=== PATIENT | female | born 1970 | race Caucasian/White ===

== ENCOUNTER 2018-01-31 08:11 | Inpatient (IN) | payer MEDICARE, MEDICAID ==
[~2018-01-31] VITALS: Ht 154.9 cm; Wt 76.5 kg
[~2018-01-31 08:11] MED LIST: QUET25TA PO
[2018-01-31] MEDS ORDERED: PANTOPRAZOLE SODIUM 40 MG/VIAL IV STA (08:34)
[2018-01-31] MEDS ORDERED: OCTREOTIDE ACETATE 50 MCG/ML 1ML IV STA (08:34)
[2018-01-31] MEDS ORDERED: SODIUM CHLORIDE 0.9% 1,000 ML IV ONE (08:34)
[2018-01-31] MEDS ORDERED: ONDANSETRON HCL 4MG/2ML VIAL IV STA (08:34)
[2018-01-31] MEDS ORDERED: PANTOPRAZOLE 80 MG in SODIUM CHLORIDE 0.9% 100 ML IV STA (08:34)
[2018-01-31] MEDS ORDERED: OCTREOTIDE 1,000 MCG in SODIUM CHLORIDE 0.9% 100 ML IV STA (08:34)
[2018-01-31 09:02] LABS: HEMATOCRIT. 29.4 % (36.0-48.0); HEMOGLOBIN. 9.9 g/dL (12.0-16.0); MEAN CORPUSCULAR HEMOGLOBIN 28.5 pg (28.0-32.0); MEAN CORPUSCULAR VOLUME 84.7 fL (81.0-99.0); MEAN PLATELET VOLUME 7.6 fl (7.4-10.4); PLATELET 188 x1000/uL (130-400); RED BLOOD CELL COUNT 3.48 mill/uL (4.2-5.4); RED CELL DISTRIBUTION WIDTH 18.3 % (11.6-14.6)
[2018-01-31 09:06] LABS: CHLORIDE 93 mEq/L (98-107)
[2018-01-31 09:07] LABS: INR 1.2; PROTHROMBIN TIME 12.9 sec (9.4-11.6)
[2018-01-31 09:14] LABS: HCG SCREEN INDETERMINATE
[2018-01-31 09:44] LABS: PLATELET ESTIMATE NORMAL
[2018-01-31] MEDS ORDERED: SODIUM CHLORIDE 0.9% 1000ML BAG (SEPSIS BOLUS) IV ONE (09:45)
[2018-01-31] MEDS ORDERED: SODIUM CHLORIDE 0.9% 1,250 ML IV SCH (10:00)
[2018-01-31] MEDS ORDERED: GUAIFENESIN 200MG/10ML SUGAR FREE UDC PO PRN (11:30)
[2018-01-31] MEDS ORDERED: ONDANSETRON HCL 4MG/2ML VIAL IV PRN (11:30)
[2018-01-31] MEDS ORDERED: CLONIDINE 0.1MG TABLET PO PRN (11:30)
[2018-01-31] MEDS ORDERED: ACETAMINOPHEN 650MG SUPP PR PRN (11:30)
[2018-01-31] MEDS ORDERED: ACETAMINOPHEN 650MG/20.3ML UDC GT PRN (11:30)
[2018-01-31] MEDS ORDERED: ACETAMINOPHEN 325MG TABLET PO PRN (11:30)
[2018-01-31] MEDS ORDERED: DIPHENHYDRAMINE 50MG/ML VIAL IV PRN (11:30)
[2018-01-31] MEDS ORDERED: MAGNESIUM/ALUMINUM HYDROXIDE/SIMETHICONE 30ML UDC PO PRN (11:30)
[2018-01-31] MEDS ORDERED: DOCUSATE SODIUM 100MG CAPSULE PO PRN (11:30)
[2018-01-31 11:44] LABS: CLARITY URINE CLOUDY (CLEAR); COLOR URINE YELLOW (YELLOW); KETONES URINE 4+ (NEGATIVE); LEUKOCYTE ESTERASE URINE 1+ (NEGATIVE); NITRITE URINE NEGATIVE (NEGATIVE); OCCULT BLOOD URINE 1+ (NEGATIVE); PROTEIN URINE TRACE (NEGATIVE); SPECIFIC GRAVITY URINE 1.025 (1.005-1.030)
[2018-01-31 12:00] VITALS: BP 141/78
[2018-01-31] MEDS: IPRATROPIUM/ALBUTEROL 0.5-3(2.5)MG/3ML NEB INH SCH ×2 (13:47→21:59)
[2018-01-31 14:00] VITALS: BP 131/58
[2018-01-31] MEDS ORDERED: FENTANYL CITRATE/PF 50MCG/ML 2ML VIAL ONE (14:46)
[2018-01-31] MEDS ORDERED: MIDAZOLAM HCL 5 MG/5 ML VIAL ONE (14:46)
[2018-01-31] MEDS ORDERED: MIDAZOLAM HCL 5 MG/5 ML VIAL IV PRN (14:52)
[2018-01-31] MEDS ORDERED: FENTANYL CITRATE/PF 50MCG/ML 2ML VIAL IV PRN (14:53)
[2018-01-31] MEDS ORDERED: SODIUM CHLORIDE 0.9% 10ML VIAL ONE (14:54)
[2018-01-31] MEDS ORDERED: SIMETHICONE 40 MG/0.6 ML 30ML ONE (14:54)
[2018-01-31 16:00] VITALS: BP 133/69
[2018-01-31] MEDS: FOLIC ACID 1 MG, THIAMINE HCL 100 MG, MVI, ADULT NO.1 10 ML in DEXTROSE 5% WATER 1,000 ML IV SCH ×4 (17:42)
[2018-01-31] MEDS: OCTREOTIDE 1,000 MCG in SODIUM CHLORIDE 0.9% 98 ML IV SCH (17:42)
[2018-01-31] MEDS: PROPRANOLOL HCL 10MG TABLET PO SCH ×2 (17:42→21:01)
[2018-01-31 18:00] VITALS: BP 122/87
[2018-01-31 20:00] VITALS: BP 150/76
[2018-01-31] MEDS: PANTOPRAZOLE SODIUM 40 MG/VIAL IV SCH (21:01)
[2018-01-31 22:00] VITALS: BP 138/74
[2018-01-31 23:07] LABS: BASOPHILS % 0.1 % (0.0-2.0); EOSINOPHILS % 0.3 % (0.0-5.0); HEMATOCRIT. 23.9 % (36.0-48.0); HEMOGLOBIN. 8.2 g/dL (12.0-16.0); LYMPHOCYTES % 14.1 % (20.0-50.0); MEAN CORPUSCULAR HEMOGLOBIN 28.9 pg (28.0-32.0); MEAN CORPUSCULAR VOLUME 84.3 fL (81.0-99.0); MEAN PLATELET VOLUME 7.7 fl (7.4-10.4); MONOCYTES % 7.1 % (2.0-8.0); NEUTROPHILS % 78.4 % (40.0-76.0); PLATELET 121 x1000/uL (130-400); RED BLOOD CELL COUNT 2.83 mill/uL (4.2-5.4); RED CELL DISTRIBUTION WIDTH 18.1 % (11.6-14.6)
[2018-01-31 23:22] LABS: CREATINE KINASE 465 IU/L (26-192)
[2018-01-31 23:23] LABS: CREATINE KINASE MB FRACTION 5.3 ng/mL (0.5-3.6)
[2018-02-01] VITALS (12 sets, daily range): BP systolic 107–164; BP diastolic 52–83
[2018-02-01] MEDS: IPRATROPIUM/ALBUTEROL 0.5-3(2.5)MG/3ML NEB INH SCH ×4 (02:32→20:57)
[2018-02-01] MEDS: PROPRANOLOL HCL 10MG TABLET PO SCH ×3 (05:48→21:21)
[2018-02-01] MEDS ORDERED: DIATR MEGLU/DIATRIZOATE SOLN 30ML PO SCH (07:15)
[2018-02-01 07:24] LABS: AMMONIA 132 uMol/L (<32)
[2018-02-01 07:30] LABS: BASOPHILS % 0.4 % (0.0-2.0); EOSINOPHILS % 0.3 % (0.0-5.0); HEMATOCRIT. 24.9 % (36.0-48.0); HEMOGLOBIN. 8.5 g/dL (12.0-16.0); LYMPHOCYTES % 13.4 % (20.0-50.0); MEAN CORPUSCULAR HEMOGLOBIN 28.8 pg (28.0-32.0); MEAN CORPUSCULAR VOLUME 84.5 fL (81.0-99.0); MEAN PLATELET VOLUME 8.1 fl (7.4-10.4); MONOCYTES % 5.3 % (2.0-8.0); NEUTROPHILS % 80.6 % (40.0-76.0); PLATELET 118 x1000/uL (130-400); RED BLOOD CELL COUNT 2.95 mill/uL (4.2-5.4); RED CELL DISTRIBUTION WIDTH 17.9 % (11.6-14.6)
[2018-02-01 07:39] LABS: CHLORIDE 98 mEq/L (98-107)
[2018-02-01 07:48] LABS: LDL CHOLESTEROL 113 mg/dL (5-100)
[2018-02-01 07:50] LABS: HDL CHOLESTEROL 68 mg/dL (40-59)
[2018-02-01 07:56] LABS: T4 FREE 0.76 ng/dL (0.76-1.46)
[2018-02-01 08:06] LABS: PHOSPHORUS 0.6 mg/dL (2.5-4.9)
[2018-02-01] MEDS: OCTREOTIDE 1,000 MCG in SODIUM CHLORIDE 0.9% 98 ML IV SCH (09:16)
[2018-02-01] MEDS: PANTOPRAZOLE SODIUM 40 MG/VIAL IV SCH ×2 (09:16→21:21)
[2018-02-01] MEDS: FOLIC ACID 1 MG, THIAMINE HCL 100 MG, MVI, ADULT NO.1 10 ML in DEXTROSE 5% WATER 1,000 ML IV SCH ×4 (09:16)
[2018-02-01 10:18] LABS: BASOPHILS % 0.5 % (0.0-2.0); EOSINOPHILS % 0.4 % (0.0-5.0); HEMATOCRIT. 25.5 % (36.0-48.0); HEMOGLOBIN. 8.8 g/dL (12.0-16.0); LYMPHOCYTES % 12.8 % (20.0-50.0); MEAN CORPUSCULAR VOLUME 84.3 fL (81.0-99.0); MEAN PLATELET VOLUME 7.9 fl (7.4-10.4); MONOCYTES % 6.4 % (2.0-8.0); NEUTROPHILS % 79.9 % (40.0-76.0); PLATELET 131 x1000/uL (130-400); RED BLOOD CELL COUNT 3.03 mill/uL (4.2-5.4); RED CELL DISTRIBUTION WIDTH 18.1 % (11.6-14.6)
[2018-02-01] MEDS ORDERED: LACTULOSE 20G/30ML UDC PO SCH (11:45)
[2018-02-01] MEDS ORDERED: MAGNESIUM 2 G PREMIX 50 ML IV SCH (12:00)
[2018-02-01] MEDS ORDERED: SODIUM PHOS,M-BASIC-D-BASIC 30 MM in DEXT 5% WATER 500 ML IV SCH (12:00)
[2018-02-01 19:39] LABS: BASOPHILS % 0.5 % (0.0-2.0); EOSINOPHILS % 0.5 % (0.0-5.0); HEMATOCRIT. 27.3 % (36.0-48.0); HEMOGLOBIN. 9.2 g/dL (12.0-16.0); LYMPHOCYTES % 15.4 % (20.0-50.0); MEAN CORPUSCULAR HEMOGLOBIN 28.6 pg (28.0-32.0); MEAN CORPUSCULAR VOLUME 84.6 fL (81.0-99.0); MEAN PLATELET VOLUME 8.4 fl (7.4-10.4); MONOCYTES % 7.7 % (2.0-8.0); NEUTROPHILS % 75.9 % (40.0-76.0); PLATELET 172 x1000/uL (130-400); RED BLOOD CELL COUNT 3.23 mill/uL (4.2-5.4); RED CELL DISTRIBUTION WIDTH 18.2 % (11.6-14.6)
[2018-02-02] VITALS (15 sets, daily range): BP systolic 116–155; BP diastolic 46–95
[2018-02-02] MEDS: IPRATROPIUM/ALBUTEROL 0.5-3(2.5)MG/3ML NEB INH SCH ×4 (02:16→21:34)
[2018-02-02] MEDS: OCTREOTIDE 1,000 MCG in SODIUM CHLORIDE 0.9% 98 ML IV SCH (05:11)
[2018-02-02] MEDS: PROPRANOLOL HCL 10MG TABLET PO SCH ×3 (05:12→21:34)
[2018-02-02 06:39] LABS: BASOPHILS % 0.4 % (0.0-2.0); EOSINOPHILS % 1.4 % (0.0-5.0); HEMATOCRIT. 27.1 % (36.0-48.0); HEMOGLOBIN. 9.2 g/dL (12.0-16.0); LYMPHOCYTES % 15.8 % (20.0-50.0); MEAN CORPUSCULAR HEMOGLOBIN 28.8 pg (28.0-32.0); MEAN CORPUSCULAR VOLUME 85.2 fL (81.0-99.0); MEAN PLATELET VOLUME 8.7 fl (7.4-10.4); MONOCYTES % 7.5 % (2.0-8.0); NEUTROPHILS % 74.9 % (40.0-76.0); PLATELET 148 x1000/uL (130-400); RED BLOOD CELL COUNT 3.18 mill/uL (4.2-5.4); RED CELL DISTRIBUTION WIDTH 17.8 % (11.6-14.6)
[2018-02-02 07:05] LABS: CHLORIDE 101 mEq/L (98-107)
[2018-02-02 07:09] LABS: AMMONIA 120 uMol/L (<32)
[2018-02-02 07:23] LABS: PHOSPHORUS 1.3 mg/dL (2.5-4.9)
[2018-02-02] MEDS ORDERED: POTASSIUM CHLORIDE 20MEQ/PACKET PO NR (10:15)
[2018-02-02 11:27] LABS: CREATINE KINASE 352 IU/L (26-192)
[2018-02-02] MEDS ORDERED: POTASSIUM PHOS,M-BASIC-D-BASIC 20 MMOL in DEXT 5% WATER 243.3333 ML IV SCH (12:00)
[2018-02-02] MEDS: LACTULOSE 20G/30ML UDC PO SCH (12:46)
[2018-02-02 19:17] LABS: BASOPHILS % 0.6 % (0.0-2.0); EOSINOPHILS % 1.4 % (0.0-5.0); HEMOGLOBIN. 9.5 g/dL (12.0-16.0); LYMPHOCYTES % 16.6 % (20.0-50.0); MEAN CORPUSCULAR VOLUME 85.3 fL (81.0-99.0); MEAN PLATELET VOLUME 8.7 fl (7.4-10.4); MONOCYTES % 7.9 % (2.0-8.0); NEUTROPHILS % 73.5 % (40.0-76.0); PLATELET 166 x1000/uL (130-400); RED BLOOD CELL COUNT 3.28 mill/uL (4.2-5.4); RED CELL DISTRIBUTION WIDTH 17.9 % (11.6-14.6)
[2018-02-02 19:30] LABS: CHLORIDE 105 mEq/L (98-107)
[2018-02-02] MEDS: LORAZEPAM 2MG/ML CPJ IV PRN ×2 (19:42→23:52)
[2018-02-02] MEDS: PANTOPRAZOLE SODIUM 40 MG/VIAL IV SCH (21:00)
[2018-02-03] VITALS: BP 99/56
[2018-02-03] MEDS: IPRATROPIUM/ALBUTEROL 0.5-3(2.5)MG/3ML NEB INH SCH ×4 (01:30→21:30)
[2018-02-03] MEDS: PANTOPRAZOLE SODIUM 40 MG/VIAL IV SCH ×2 (01:30→08:34)
[2018-02-03 01:38] LABS: CHLORIDE 103 mEq/L (98-107)
[2018-02-03 04:00] VITALS: BP 107/60
[2018-02-03] MEDS: PROPRANOLOL HCL 10MG TABLET PO SCH ×3 (06:00→21:23)
[2018-02-03] MEDS ORDERED: POTASSIUM CHLORIDE 20MEQ TABLET SR PO NR (07:30)
[2018-02-03 08:00] VITALS: BP 112/66
[2018-02-03 08:19] LABS: AMMONIA 106 uMol/L (<32)
[2018-02-03 08:26] LABS: PHOSPHORUS 2.1 mg/dL (2.5-4.9)
[2018-02-03] MEDS: LACTULOSE 20G/30ML UDC PO SCH ×2 (08:34→19:33)
[2018-02-03] MEDS: LORAZEPAM 2MG/ML CPJ IV PRN (08:34)
[2018-02-03 12:00] VITALS: BP 92/66
[2018-02-03] MEDS ORDERED: POTASSIUM-SODIUM PHOSPHATE POWDER PACKET PO NR (14:00)
[2018-02-03] MEDS ORDERED: BISACODYL 10MG SUPP PR NR (14:04)
[2018-02-03 16:00] VITALS: BP 108/68
[2018-02-03 19:58] LABS: CHLORIDE 106 mEq/L (98-107)
[2018-02-03 20:00] VITALS: BP 106/62
[2018-02-03 20:33] LABS: BASOPHILS % 1.6 % (0.0-2.0); EOSINOPHILS % 1.3 % (0.0-5.0); HEMATOCRIT. 27.5 % (36.0-48.0); HEMOGLOBIN. 9.1 g/dL (12.0-16.0); LYMPHOCYTES % 22.4 % (20.0-50.0); MEAN CORPUSCULAR VOLUME 87.1 fL (81.0-99.0); MEAN PLATELET VOLUME 8.6 fl (7.4-10.4); MONOCYTES % 7.9 % (2.0-8.0); NEUTROPHILS % 66.8 % (40.0-76.0); PLATELET 149 x1000/uL (130-400); RED BLOOD CELL COUNT 3.16 mill/uL (4.2-5.4)
[2018-02-03] MEDS: RIFAXIMIN 550 MG TABLET PO SCH (21:16)
[2018-02-04] VITALS: BP 101/45
[2018-02-04] MEDS: IPRATROPIUM/ALBUTEROL 0.5-3(2.5)MG/3ML NEB INH SCH ×3 (01:25→13:24)
[2018-02-04 04:00] VITALS: BP 102/60
[2018-02-04] MEDS: PROPRANOLOL HCL 10MG TABLET PO SCH (05:09)
[2018-02-04 08:00] VITALS: BP 115/68
[2018-02-04] MEDS: LACTULOSE 20G/30ML UDC PO SCH (09:20)
[2018-02-04] MEDS: PANTOPRAZOLE SODIUM 40 MG/VIAL IV SCH (09:20)
[2018-02-04] MEDS: RIFAXIMIN 550 MG TABLET PO SCH (09:20)
[2018-02-04 09:55] LABS: AMMONIA 53 uMol/L (<32)
[2018-02-04] MEDS ORDERED: RIFA550T PO (11:22)
[2018-02-04] MEDS ORDERED: PROP10TA10 PO (11:22)
[2018-02-04] MEDS ORDERED: LACT10SO7 PO (11:22)
[2018-02-04] MEDS ORDERED: PANT40VI PO (11:22)
[2018-02-04 12:00] VITALS: BP 113/66
[2018-02-04 16:00] VITALS: BP 114/67
== END 2018-02-04 17:30 | disposition home or self-care (01) | DRG 432 ==
LOC: ER 08:11 → INTOOBSV 09:44 → 5EST 09:44 → OBSVTOIN 09:44 → EDBEDREQ 09:45 → EDBEDREQTM 09:45 → ENRESERV 10:20 → 6WST 02-02 17:59
PROVIDERS: ADMIT Internal Medicine; ATTEND Internal Medicine
PROC: 06L38CZ Occlusion of Esophageal Vein with Extraluminal Device, Via Natural or Artificial Opening Endoscopic (ICD-10-PCS; principal; 2018-01-31 15:30)
DX: K70.30 Alcoholic cirrhosis of liver without ascites (principal); I85.01 Esophageal varices with bleeding; K76.6 Portal hypertension; E72.20 Disorder of urea cycle metabolism, unspecified; E87.2 Acidosis; M62.82 Rhabdomyolysis; F10.20 Alcohol dependence, uncomplicated; D50.9 Iron deficiency anemia, unspecified; E83.39 Other disorders of phosphorus metabolism; E87.6 Hypokalemia; F32.9 Major depressive disorder, single episode, unspecified; K31.89 Other diseases of stomach and duodenum; Z79.899 Other long term (current) drug therapy
CPT/HCPCS: 36415; 71045; 80048; 80053; 80061; 80076; 81003; 82140; 82550; 82553; 83605; 83690; 83735; 83880; 84100; 84145; 84439; 84443; 84481; 84484; 84702; 84703; 85018; 85025; 85610; 86850; 86900; 87040; 87086; 93005; 94640; 96365; 96368; 96375; 99291; A4216; C9113; J2060; J2250; J2354; J2405; J3010; J3411; J3475; J3490; J7030; J7050; J7060; J7070; J7620